=== PATIENT | female | born 2005 | race Caucasian/White ===

== ENCOUNTER 2024-09-25 13:38 | Outpatient (CLI) | payer OTHER, SELFPAY ==
[2024-09-25 16:05] LABS: Opiate Screen,Urine Negative ng/ml (<300)
[2024-09-25 16:06] LABS: Phencyclidine Screen,Urine Negative ng/ml (<25)
[2024-09-25 16:16] LABS: Barbiturates Screen,Urine Negative ng/ml (<200)
[2024-09-25 16:17] LABS: Benzodiazepines Screen,Urine Negative ng/ml (<200)
[2024-09-25 16:18] LABS: Amphetamine/Metha Screen,Urine Positive ng/ml (<1000)
[2024-09-25 16:19] LABS: Methadone Screen,Urine Negative ng/ml (<300)
--- OUTSIDE RECORDS SUMMARY | 2024-09-26 14:12 | XMS_ITS | Clinical Summary ---
Author Organization [facility] Address [address] [facility] [address] [place] [address] Care Team Providers Care Boatwright Name Role Phone Carina Barrera MD Primary Care Provider [phone] Allergies Active Allergy Reactions Criticality Noted Date Comments Hydrocodone Rash Medium 06/24/2021 Sulfamethoxazole-Trimethoprim Rash Medium 2021 Medications cetirizine (ZYRTEC) 10 mg Oral Tablet Take 1 Tablet (10 mg total) by mouth Once a day Active sertraline (ZOLOFT) 50 mg Oral Tablet Take 1 Tablet (50 mg total) by mouth Daily Active dextroamphetami ne-amphetamine (ADDERALL XR) 10 mg Oral Capsule, Sust. Release 24 hr Take 1 Capsule (10 mg total) by mouth Daily 3 Active TRI-SPRINTEC, 28, 0.18/0.215/0.25 mg-35 mcg (28) Oral Tablet Take 1 Tablet by mouth Once a day 3 Active sertraline (ZOLOFT) 100 mg Oral Tablet Take 1 tablet by mouth every day 90 Tablet 1 05/06/2023 5:43 PM EDT 4 Active dextroamphetami ne-amphetamine (ADDERALL) 5 mg Oral Tablet Take 1 Tablet (5 mg total) by mouth Once a day 26 Tablet 4 Active dextroamphetami ne-amphetamine (ADDERALL) 5 mg Oral Tablet Take 1 Tablet (5 mg total) by mouth Once a day 26 Tablet 4 Active dextroamphetami ne-amphetamine (ADDERALL XR) 10 mg Oral Capsule, Sust. Release 24 hr Take 1 Capsule (10 mg total) by mouth Once a day 26 Capsule 4 Active dextroamphetami ne-amphetamine (ADDERALL XR) 10 mg Oral Capsule, Sust. Release 24 hr Take 1 Capsule (10 mg total) by mouth Once a day 26 Capsule 4 Active dextroamphetami ne-amphetamine (ADDERALL) 5 mg Oral Tablet Take 1 Tablet (5 mg total) by mouth Once a day 30 Tablet 07/20/2023 12:38 PM EDT 4 Active dextroamphetami ne-amphetamine (ADDERALL) 5 mg Oral Tablet Take 1 Tablet (5 mg total) by mouth Once a day 30 Tablet 4 Active dextroamphetami ne-amphetamine (ADDERALL) 5 mg Oral Tablet Take 1 Tablet (5 mg total) by mouth Once a day 30 Tablet 4 Active dextroamphetami ne-amphetamine (ADDERALL XR) 10 mg Oral Capsule, Sust. Release 24 hr Take 1 Capsule (10 mg total) by mouth Once a day 30 Capsule 4 Active dextroamphetami ne-amphetamine (ADDERALL XR) 10 mg Oral Capsule, Sust. Release 24 hr Take 1 Capsule (10 mg total) by mouth Once a day 30 Capsule 07/20/2023 12:38 PM EDT 4 Active dextroamphetami ne-amphetamine (ADDERALL XR) 10 mg Oral Capsule, Sust. Release 24 hr Take 1 Capsule (10 mg total) by mouth Once a day 30 Capsule 4 Active hyoscyamine sulfate (LEVSIN/SL) 0.125 mg Sublingual Tablet, Sublingual Place 1 Tablet (0.125 mg total) under the tongue Twice per day as needed 180 Tablet 1 07/20/2023 12:38 PM EDT 4 Active Norgestimate-Et hinyl Estradiol (Ortho Tri-Cyclen, 28,) 0.18/0.215/0.25 mg-35 mcg (28) Oral Tablet Take 1 Tablet by mouth Once a day 84 Tablet 3 03/15/2024 1:29 PM EST 4 Active sertraline (ZOLOFT) 100 mg Oral Tablet Take 1 Tablet (100 mg total) by mouth Once a day 90 Tablet 1 11/18/2023 11:32 AM EDT 4 Active mupirocin (BACTROBAN) 2 % Ointment Apply twice daily to wounds until healed 22 g 2 11/18/2023 11:32 AM EDT 4 Active dextroamphetami ne-amphetamine (ADDERALL) 5 mg Oral Tablet Take 1 Tablet (5 mg total) by mouth Once a day 30 Tablet 4 Active dextroamphetami ne-amphetamine (ADDERALL) 5 mg Oral Tablet Take 1 Tablet (5 mg total) by mouth Once a day 30 Tablet 4 Active dextroamphetami ne-amphetamine (ADDERALL XR) 10 mg Oral Capsule, Sust. Release 24 hr Take 1 Capsule (10 mg total) by mouth Once a day 30 Capsule 4 Active dextroamphetami ne-amphetamine (ADDERALL XR) 10 mg Oral Capsule, Sust. Release 24 hr Take 1 Capsule (10 mg total) by mouth Once a day 30 Capsule 4 Active sertraline (ZOLOFT) 100 mg Oral Tablet Take 1 tablet by mouth daily 90 Tablet 1 4 Active Norgestimate-Et hinyl Estradiol (Ortho Tri-Cyclen, 28,) 0.18/0.215/0.25 mg-35 mcg (28) Oral Tablet Take 1 tablet by mouth daily. 84 Tablet 3 4 Active hyoscyamine sulfate (LEVSIN/SL) 0.125 mg Sublingual Tablet, Sublingual Place 1 tablet under the tongue twice a day as needed. 180 Tablet 1 4 Active dextroamphetami ne-amphetamine (ADDERALL XR) 10 mg Oral Capsule, Sust. Release 24 hr Take 1 capsule every day by oral route. 30 Capsule 5 Active dextroamphetami ne-amphetamine (ADDERALL XR) 10 mg Oral Capsule, Sust. Release 24 hr Take 1 capsule every day by oral route. 30 Capsule 03/15/2024 1:29 PM EST 4 Active dextroamphetami ne-amphetamine (ADDERALL) 5 mg Oral Tablet Take 1 tablet every day by oral route as directed. 30 Tablet 5 Active dextroamphetami ne-amphetamine (ADDERALL) 5 mg Oral Tablet Take 1 tablet every day by oral route as directed. 30 Tablet 4 Active dextroamphetami ne-amphetamine (ADDERALL) 5 mg Oral Tablet Take 1 tablet every day by oral route as directed. 30 Tablet 03/15/2024 1:29 PM EST 4 Active dextroamphetami ne-amphetamine (ADDERALL XR) 10 mg Oral Capsule, Sust. Release 24 hr Take 1 capsule every day by oral route. 30 Capsule 4 Active Cyanocobalamin 1,000 mcg Sublingual Tablet, Sublingual Dissolve 1 tablet under the tongue every day 90 Tablet 1 03/15/2024 1:29 PM EST 4 Active ergocalciferol, vitamin D2, (DRISDOL) 1,250 mcg (50,000 unit) Oral Capsule Take 1 capsule by mouth every week 12 Capsule 1 03/15/2024 1:29 PM EST 4 Active fexofenadine (BRENDA) 180 mg Oral Tablet Take 1 Tablet (180 mg total) by mouth Daily 30 Tablet 5 Active fluticasone propionate (FLONASE) 50 mcg/actuation Nasal Trenary, Suspension Administer 1 Trenary into each nostril Daily 16 g 5 Active Active Problems No known active problems Immunizations Immunization Administration Dates Next Due Influenza Vaccine, 6 month-adult 12/15/2023 Social History Tobacco Use Types Packs/Day Years Used Date Smoking Tobacco: Never Smokeless Tobacco: Never Alcohol Use Standard Drinks/Week Comments Never 0 (1 standard drink = 0.6 oz pur e alcohol) Comments No Sex and Gender Information Value Date Recorded Sex Assigned at Not on file Legal Sex Female 1:52 PM EDT Gender Identity Not on file Sexual Orientation Not on file Last Filed Vital Signs Vital Sign Reading Time Taken Comments Blood Pressure 107/74 06/21/2024 2:27 PM EDT Pulse 90 06/21/2024 2:27 PM EDT Temperature 36.6 C (97.9 F) 06/21/2024 2:27 PM EDT Respiratory Rate 20 06/21/2024 2:27 PM EDT Oxygen Saturation 98% 06/21/2024 2:27 PM EDT Inhaled Oxygen Concentration - - Weight 104 kg (229 lb 4.5 oz) 06/21/2024 2:27 PM EDT Height 170.2 cm (5' 7 ) 06/21/2024 2:27 PM EDT Body Mass Index 35.91 06/21/2024 2:27 PM EDT Plan of Treatment Health Maintenance Due Date Last Done Comments Chlamydia/Gonorrhea Screening 2003 Hepatitis C screening 2003 NonMedicare Preventative Exam 2003 Depression Screening 2015 HPV Vaccines (3 - 2-dose series) 02/02/2017 09/30/19 17, 08/03/2016 HIV Screening 11/26/2018 Covid-19 Vaccine (2023-2 5 season) 2023 02/24/2022, 02/03/2021, 06/15/2020, Additional history exists [facility] [employer] Cap ture Hidden 09/15/2024 Influenza Vaccine (#1) 2024 4, 01/21/2009, 12/17/2008, Additional history exists Adult Tdap-Td (8 - Td or Tdap) 08/12/2031 0 08/11/2021, 08/03/2016, 12/09/2007, Additional history exists Hepatitis B Vaccine Completed 06/06/2004, 03/21/2004, 01/26/2004, Additional history exists Insurance PEIA PEIA Member Subscriber Plan / Payer (Ef fective 2020-Present) Name:Akanksha Jameson Relation to Subscriber:Child Name:HALI JAMESON Date of :1968 (Home) Address: [address] [place] [address] Payer ID:[id number] (NAIC) Type:Non Managed Care Address: [address] [address] Care Teams Boatwright Relationship Specialty Start Date End Date Carina Barrera MD [address] [place] [id number] PCP - General FAMILY PRACTICE 06/24/21
== END 2024-09-25 23:59 | disposition home or self-care (01) ==
LOC: LAB.DROPOF 09-26 14:07
PROVIDERS: PCP Internal Medicine; Visit Provider Internal Medicine
DX: Z02.1 Encounter for pre-employment examination (principal); R31.9 Hematuria, unspecified
CPT/HCPCS: 80307; 87086